=== PATIENT | female | born 1950 | race Caucasian/White ===

== ENCOUNTER → 2016-09-19 | Outpatient (CLI) | payer MEDICARE, OTHER ==
[~2016-09-19] MED LIST: LISI1TAB3 PO
--- NOTE | 2016-09-19 09:27 | RAD ---
EXAM: Chest 2 views. HISTORY: Foreign body sensation in throat. Asbestos exposure. COMPARISON: 10/13/2008. FINDINGS: Frontal and lateral views of the chest are obtained. A 15 mm nodule laterally along the right minor fissure appears new since the prior study. It is dense and may be calcified. There are no clear infiltrates. There is no pneumothorax or pleural effusion. The heart is not enlarged. IMPRESSION: 1. New 15 mm nodule along the right minor fissure. This appears to be calcified. CT could confirm this if intermediate radiographs do not already confirm long-term stability. CT is also more sensitive for interstitial lung disease in the setting of asbestos exposure.
== END | disposition home or self-care (01) ==
LOC: DXRADRC 08:57
PROVIDERS: ATTEND Physician Assistant Medical
DX: J84.9 Interstitial pulmonary disease, unspecified (principal); R07.0 Pain in throat; R09.89 Other specified symptoms and signs involving the circulatory and respiratory systems; Z77.090 Contact with and (suspected) exposure to asbestos
CPT/HCPCS: 71020

== ENCOUNTER → 2016-09-20 | Outpatient (CLI) | payer MEDICARE, OTHER ==
--- NOTE | 2016-09-20 09:10 | RAD ---
Indication abnormal chest x-ray. Noncontrast imaging through the chest was performed. No prior CT imaging of the chest is available. Note is made of a plain film examination of the chest one day earlier demonstrating a nodule in the right lung. Imaging through the upper abdomen shows no acute or significant finding. Clips are noted in the gallbladder fossa. There is a probable nodule in the left lobe of the thyroid. This is likely incidental but could be further evaluated with ultrasound if clinically warranted. There is no significant hilar or mediastinal adenopathy. There are a few calcified left hilar lymph nodes. The nodule on plain film is a densely calcified and is most compatible with a benign granuloma. There is some pleural thickening in the right mid and lower lung posteriorly and medially. This is likely chronic. There is no acute parenchymal infiltrate. A dominant soft tissue mass in either lung is not seen. There is some minimal nodularity along the fissure in the left lung, image 46 series 2. IMPRESSION: No acute finding in the chest. Calcified granuloma in the right lung. Pleural thickening in the right mid and posterior lung medially. This is likely chronic. Probable nodule left lobe of the thyroid Minimal nodularity along the left major fissure likely incidental. PQRS Compliance Statement: One or more of the following individualized dose reduction techniques were utilized for this examination: 1. Automated exposure control 2. Adjustment of the mA and/or kV according to patient size 3. Use of iterative reconstruction technique
== END | disposition home or self-care (01) ==
LOC: CT 08:19
PROVIDERS: ATTEND Physician Assistant Medical
DX: J84.10 Pulmonary fibrosis, unspecified (principal); R91.8 Other nonspecific abnormal finding of lung field; R93.8 Abnormal findings on diagnostic imaging of other specified body structures
CPT/HCPCS: 71250

== ENCOUNTER → 2017-02-14 | Outpatient (CLI) | payer MEDICARE, OTHER ==
--- NOTE | 2017-02-15 15:56 | RAD ---
DATE: 02/14/2017 EXAM: MAMMO KETTY SCREENING BILATERAL HISTORY: Routine screening COMPARISON: 04/01/2015 This study was interpreted with the benefit of Computerized Aided Detection (CAD). The breast parenchyma is heterogeneously dense, which could reduce sensitivity of mammography. Breast parenchyma level C. FINDINGS: 2-D and 3-D tomosynthesis imaging was performed in CC and MLO projections. The breasts are heterogeneously dense in a multinodular pattern. These nodules are smooth. No new or enlarging breast densities are seen. Benign type calcifications are present. No suspicious microcalcifications have developed. IMPRESSION: Stable mammograms without evidence of malignancy. BI-RADS CATEGORY: 2 BENIGN FINDING(S) RECOMMENDED FOLLOW-UP: 12M 12 MONTH FOLLOW-UP PQRS compliance statement: Patient information was entered into a reminder system with a target due date for the next mammogram. Mammography is a sensitive method for finding small breast cancers, but it does not detect them all and is not a substitute for careful clinical examination. A negative mammogram does not negate a clinically suspicious finding and should not result in delay in biopsying a clinically suspicious abnormality. "Our facility is accredited by the [employer] Mammography Program."
== END | disposition home or self-care (01) ==
LOC: MAMMO 10:52
PROVIDERS: ATTEND Nurse Practitioner Family
DX: Z12.31 Encounter for screening mammogram for malignant neoplasm of breast (principal)
CPT/HCPCS: 77063; G0202; 77067

== ENCOUNTER → 2017-04-06 | Outpatient (CLI) | payer MEDICARE, OTHER ==
--- NOTE | 2017-04-06 12:31 | RAD ---
CT of the cervical spine without contrast, 04/06/2017: History: C2 fracture Multidetector CT imaging was performed without contrast. Multiplanar reconstructions were produced. Comparison is made to an outside study from 03/29/2017. Again noted is a fracture of the lateral mass of C2. The fracture lines involves the anterior and posterolateral margins of the right foramen transversarium. There is no significant displacement at the fracture site. No involvement of the pedicle or significant involvement of the right facet joint is seen. The odontoid process is intact. There are moderate degenerative changes involving multiple facet joints bilaterally. Mild unchanged anterolisthesis at C2-3 and C4-5 is probably due to facet joint arthropathy. No additional fracture is evident. There is disc space narrowing with moderate marginal spurring at C5-6 and C6-7. No high-grade central spinal stenosis is evident. IMPRESSION: 1. Stable nondisplaced fracture of the lateral mass of C2 involving the foramen transversarium. 2. Moderate multilevel degenerative change. 3. Mild unchanged anterolisthesis at C2-3 and C4-5 due to facet joint arthropathy. PQRS Compliance Statement: One or more of the following individualized dose reduction techniques were utilized for this examination: 1. Automated exposure control 2. Adjustment of the mA and/or kV according to patient size 3. Use of iterative reconstruction technique
== END | disposition home or self-care (01) ==
LOC: CT 11:05
PROVIDERS: ATTEND Neurological Surgery
DX: S12.191A Other nondisplaced fracture of second cervical vertebra, initial encounter for closed fracture (principal); M47.892 Other spondylosis, cervical region; X58.XXXA Exposure to other specified factors, initial encounter; Y93.89 Activity, other specified; Y92.89 Other specified places as the place of occurrence of the external cause; Y99.8 Other external cause status
CPT/HCPCS: 72125

== ENCOUNTER → 2017-05-08 | Outpatient (CLI) | payer MEDICARE, OTHER ==
--- NOTE | 2017-05-08 13:23 | RAD ---
Three-view cervical spine series Clinical indications: C2 fracture. Follow-up study. Comparison: CT study dated April 06, 2017. Findings: Three-view study of the cervical spine was performed. The resolution is decreased due to overlying cervical collar device. C2 right lateral mass is displaced laterally with respect to the right C1 lateral masses as a result of a fracture through the right C2 lateral mass. The fracture line is difficult to visualize due to the overlying device. Therefore evaluation for healing cannot be completed. Alignment is unchanged from the CT study however. The alignment of the odontoid process with respect to the C1 anterior arch is normal and unchanged from the CT study. Again seen is a grade 1 anterolisthesis of C2-3 and C3-4 and C4-5 which is unchanged. Degenerative endplate spurring and moderate degenerative disc space narrowing is evident at C5-6 and C6-7 and to a lesser extent at C7-T1. IMPRESSION: Fracture of the right lateral mass of C2. Evaluation for healing is difficult with the overlying cervical spine device. Alignment is stable.
== END | disposition home or self-care (01) ==
LOC: DXRAD 10:55
PROVIDERS: ATTEND Neurological Surgery
DX: S12.120D Other displaced dens fracture, subsequent encounter for fracture with routine healing (principal); M48.02 Spinal stenosis, cervical region; M46.02 Spinal enthesopathy, cervical region; X58.XXXD Exposure to other specified factors, subsequent encounter
CPT/HCPCS: 72040

== ENCOUNTER → 2017-05-24 | Outpatient (CLI) | payer MEDICARE, OTHER ==
--- NOTE | 2017-05-24 09:58 | RAD ---
Cervical spine CT without contrast History: C2 fracture Technique: Noncontrast CT imaging was performed of the cervical spine. Multiplanar images are reviewed. Exposure: One or more of the following individualized dose reduction techniques were utilized for this examination: 1. Automated exposure control 2. Adjustment of the mA and/or kV according to patient size 3. Use of iterative reconstruction technique. Comparison: 04/06/2017 Findings: There is residual identifiable vertically oriented fracture plane involving the anterior right lateral mass of C2 extending to the right transverse foramen, fracture plane slightly less apparent more anteriorly, unchanged alignment. Degree of mild inferior displacement of the more lateral fracture fragment is stable. Alignment of the right lateral masses of C1 and C2 is unchanged. No new fracture is identified. There is again grade 1 anterior spondylolisthesis C2-3, C3-4, C4-5. There is again more advanced degenerative disc disease C5-C6 and C6-7 and to lesser degree at C7-T1. Round focus of bone lysis of the right aspect of T1 is stable, possibly underlying hemangioma. There are disc osteophyte complexes greatest at C5-C6 and C6-7 as seen previously. There is no significant cervical spinal stenosis identified on this nonmyelographic exam. Cervical neural foramina are not significantly narrowed. There is multilevel cervical facet degenerative change. Occipital condylar-C1 articulation is preserved. There is again heterogeneity of the thyroid gland with likely underlying nodules, also some small foci of calcification on the left. IMPRESSION: 1. There is again vertically oriented fracture involving the right lateral mass of C2 extending to the right transverse foramen, unchanged alignment. Fracture plane is slightly less apparent more anteriorly. 2. There is again degenerative disc disease and spondylosis greatest at C5-C6 and C6-7. There is similar multilevel mild abnormal alignment, multilevel facet degenerative change. 3. There is again heterogeneity of thyroid gland with likely underlying nodules, also some small calcifications on the left. Findings would be better characterized by ultrasound. Electronically signed by: José Miguel Esteves MD (05/24/2017 9:55 AM) [id number]
== END | disposition home or self-care (01) ==
LOC: CT 09:25
PROVIDERS: ATTEND Neurological Surgery
DX: S12.100D Unspecified displaced fracture of second cervical vertebra, subsequent encounter for fracture with routine healing (principal); M50.33 Other cervical disc degeneration, cervicothoracic region; M47.892 Other spondylosis, cervical region; M25.78 Osteophyte, vertebrae; X58.XXXD Exposure to other specified factors, subsequent encounter
CPT/HCPCS: 72125

== ENCOUNTER → 2017-06-20 | Outpatient (CLI) | payer MEDICARE, OTHER ==
--- NOTE | 2017-06-20 13:36 | RAD ---
Cervical spine CT without contrast History: C2 fracture Technique: Noncontrast CT imaging was performed of the cervical spine. Multiplanar images are reviewed. Exposure: One or more of the following individualized dose reduction techniques were utilized for this examination: 1. Automated exposure control 2. Adjustment of the mA and/or kV according to patient size 3. Use of iterative reconstruction technique. Comparison: May 24, 2017 Findings: There is again vertically oriented fracture involving the anterior right lateral mass of C2 extending to the right transverse foramen, not significantly changed in alignment. There is again residual fracture plane slightly less apparent more anteriorly. There is unchanged alignment of lateral masses of C1-2. No new fracture is identified. There is again degenerative disc disease greatest at C5-C6 and C6-7, also spondylosis greatest at these levels. Vertebral body stature is unchanged. There is similar multilevel grade 1 anterior spondylolisthesis C2-3, C3-4, C4-5. There is again round focus of bone lysis on the right at T1 overall stable in appearance. There is multilevel cervical facet degenerative change. Atlantoaxial distance is within normal limits. There is again heterogeneous thyroid gland with underlying nodularity, small foci of calcification on the left as seen previously. Impression: 1. There is similar alignment of vertically oriented fracture of the right lateral mass of C2 extending to the right transverse foramen, anterior aspect of fracture plane slightly less apparent although still identified. 2. There is again degenerative disc disease and spondylosis greatest at C5-C6 and C7. 3. There is multilevel cervical facet degenerative change, multilevel mild abnormal alignment as seen previously. 4. There is again heterogeneity and nodularity of the thyroid gland. Electronically signed by: José Miguel Esteves MD (06/20/2017 1:33 PM) [place] [id number]
== END | disposition home or self-care (01) ==
LOC: CT 11:06
PROVIDERS: ATTEND Neurological Surgery
DX: S12.190D Other displaced fracture of second cervical vertebra, subsequent encounter for fracture with routine healing (principal); M50.323 Other cervical disc degeneration at C6-C7 level; M47.892 Other spondylosis, cervical region; M43.12 Spondylolisthesis, cervical region; X58.XXXD Exposure to other specified factors, subsequent encounter
CPT/HCPCS: 72125

== ENCOUNTER → 2017-07-28 | Outpatient (CLI) | payer MEDICARE, OTHER ==
--- NOTE | 2017-07-28 16:06 | RAD ---
Thyroid ultrasound History: Thyroid nodules. Comparison: None. Findings: Right thyroid lobe measures 5.5 cm in length by 2.0 cm in AP dimension by 1.9 cm in transverse dimension. Right lobe demonstrates numerous nodules. Superior right thyroid lobe demonstrates heterogeneous nodule with hypoechoic and intermediate echoic elements. This measures 2.4 x 1.8 x 1.4 cm and is wider than tall. This nodule is considered a TI-RADS 4. Mid thyroid lobe demonstrates 2 complex cystic and solid nodules which measure 1.1 x 1.0 x 0.8 cm and 1.3 x 1.2 x 0.8 cm. There is a cyst involving the inferior right thyroid lobe measuring 0.7 x 0.6 x 0.7 cm. Left thyroid lobe measures 5.0 cm in length by 1.8 cm AP dimension by 2.0 cm in transverse dimension. Left thyroid lobe demonstrates presence of multiple thyroid nodules. Superior left thyroid lobe demonstrates heterogeneous, primarily hypoechoic nodule which measures 1.2 x 1.1 x 0.7 cm. Mid left thyroid lobe demonstrates heterogeneous hypoechoic and intermediate echoic nodule which measures 1.3 x 1.3 x 1.5 cm; this is considered TI-RADS 4. There is an additional hypoechoic nodule involving the mid left thyroid lobe which measures 1.2 x 1.0 x 0.9 cm; this nodule demonstrates macrocalcification and is considered TI-RADS 4. There are 2 additional hypoechoic nodules involving the medial mid thyroid lobe measuring 0.7 x 0.7 x 0.3 cm and 0.7 x 0.5 x 0.4 cm. Isthmus measures 6 mm in thickness. Impression: 1. Multinodular goiter. 2. There is a dominant nodule involving superior right thyroid lobe measuring 2.4 x 1.8 x 1.4 cm. This considered a TI-RADS 4 lesion. Given size, ultrasound-guided fine-needle aspiration is recommended. 3. The largest left thyroid nodule measures 1.5 cm in maximum dimension and is a TI-RADS 4 lesion. Given size, ultrasound-guided fine-needle aspiration is recommended. 4. There is a smaller TI-RADS 4 lesion involving the left thyroid lobe which demonstrates coarse calcification; given size, ultrasound follow-up is recommended of this nodule. 5. Smaller bilateral thyroid nodules are seen. Electronically signed by: Bill Sullivan MD (07/28/2017 4:02 PM) [facility]
== END | disposition home or self-care (01) ==
LOC: US 10:38
PROVIDERS: ATTEND Nurse Practitioner Family
DX: E04.2 Nontoxic multinodular goiter (principal)
CPT/HCPCS: 76536

== ENCOUNTER 2017-12-15 18:25 | Emergency (ER) | payer MEDICARE, OTHER ==
[~2017-12-15] VITALS: Ht 167.6 cm; Wt 80.3 kg
[2017-12-15] MEDS ORDERED: cloNIDine HCL 0.1 MG TABLET PO ONE (19:00)
[2017-12-15] MEDS ORDERED: ONDANSETRON PF 4 MG/2 ML VIAL. IV ONE (19:00)
[2017-12-15] MEDS ORDERED: MORPHINE SULFATE 4 MG/ML DISP.SYRIN. IV ONE (19:00)
--- NOTE | 2017-12-15 19:06 | ED.ADGEN ---
Past History Past Medical History: Anxiety, Diabetes, GERD, Hypertension Past Surgical History: Hysterectomy Alcohol Use: None Drug Use: None Adult General Chief Complaint Chief Complaint Headaches, hypertension HPI HPI Patient is 67-year-old with history of diabetes, hypertension and Monday presents with gradual onset posterior headache described as throbbing and rated moderate starting approximately 4-5 hours prior to ED arrival. Medicated the septal region and is nonradiating nonmigratory. It does not reproduce with position change, head movement. 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 Denies facial pain, tenderness tenderness , temporal scalp tenderness, nasal congestion, rhinorrhea, cough, fever, sore throat. Denies lower extremity weakness or numbness. Denies lightheadedness or dizziness. No other acute symptoms or complaints. Patient compliant with blood pressure medication took 20 mg of lisinopril earlier this morning. She has not taking any medications for the headache prior to coming to the emergency department. Blood pressure on ED arrival noted to be 160s over 120s. Patient's accompanied at bedside by significant other.] Review of Systems Review of Systems ROS as per HPI All other systems were reviewed and found to be within normal limits, except as documented in this note. Current Medications Current Medications Current Medications Medications (Trade) Dose Ordered Sig/Gordon Start Time Stop Time Status Last Admin Dose Admin Clonidine HCl (Catapres) 0.2 mg 1X ONCE 12/15/17 19:00 12/15/17 19:01 DC 12/15/17 19:04 0.2 MG Metoclopramide HCl (Reglan Vial) 10 mg 1X ONCE 12/15/17 19:45 12/15/17 19:46 DC 12/15/17 19:38 10 MG Morphine Sulfate (Morphine 4mg Syringe) 4 mg 1X ONCE 12/15/17 19:00 12/15/17 19:01 DC 12/15/17 19:05 4 MG Ondansetron HCl (Zofran) 4 mg 1X ONCE 12/15/17 19:00 12/15/17 19:01 DC 12/15/17 19:05 4 MG Prochlorperazine Edisylate (Compazine) 10 mg 1X ONCE 12/15/17 19:45 12/15/17 19:46 DC 12/15/17 19:38 10 MG Allergies Allergies Allergies Coded Allergies Type Severity Reaction Last Updated Verified No Known Drug Allergies 07/01/13 No Physical Exam Physical Exam Constitutional: Well developed, well nourished, no acute distress, non-toxic appearance. [] HENT: Normocephalic, atraumatic, bilateral external ears normal, oropharynx moist, nose normal. [] Eyes: PERRLA, EOMI, conjunctiva normal. [] Neck: Normal range of motion, no tenderness. [] Cardiovascular:Heart rate regular rhythm, no murmur [] Lungs & Thorax: Bilateral breath sounds clear to auscultation. [] Abdomen: Bowel sounds normal, soft, no tenderness. [] Skin: Warm, dry. [] Back: No tenderness. [] Extremities: No tenderness, no edema. [] Neurologic: Alert and oriented X 3, normal motor function, normal sensory function, no focal deficits noted. [] Psychologic: Affect normal, judgement normal, mood normal. [] Current Patient Data Vital Signs Vital Signs Date Time Temp Pulse Resp B/P (MAP) Pulse Ox O2 Delivery O2 Flow Rate FiO2 12/15/17 20:11 78 18 148/84 (105) 97 Room Air 12/15/17 18:43 97.9 Lab Results Laboratory Tests Test 12/15/17 18:54 White Blood Count 10.0 x10^3/uL (4.0-11.0) Red Blood Count 5.18 x10^6/uL (3.50-5.40) Hemoglobin 16.2 g/dL (12.0-15.5) H Hematocrit 46.9 % (36.0-47.0) Mean Corpuscular Volume 91 fL (79-100) Mean Corpuscular Hemoglobin 31 pg (25-35) Mean Corpuscular Hemoglobin Concent 35 g/dL (31-37) Red Cell Distribution Width 14.0 % (11.5-14.5) Platelet Count 234 x10^3/uL (140-400) Neutrophils (%) (Auto) 69 % (31-73) Lymphocytes (%) (Auto) 25 % (24-48) Monocytes (%) (Auto) 5 % (0-9) Eosinophils (%) (Auto) 2 % (0-3) Basophils (%) (Auto) 0 % (0-3) Neutrophils # (Auto) 6.9 x10^3uL (1.8-7.7) Lymphocytes # (Auto) 2.4 x10^3/uL (1.0-4.8) Monocytes # (Auto) 0.5 x10^3/uL (0.0-1.1) Eosinophils # (Auto) 0.1 x10^3/uL (0.0-0.7) Basophils # (Auto) 0.0 x10^3/uL (0.0-0.2) Sodium Level 139 mmol/L (136-145) Potassium Level 3.7 mmol/L (3.5-5.1) Chloride Level 102 mmol/L (98-107) Carbon Dioxide Level 28 mmol/L (21-32) Anion Gap 9 (6-14) Blood Urea Nitrogen 8 mg/dL (7-20) Creatinine 0.9 mg/dL (0.6-1.0) Estimated GFR (Cockcroft-Gault) 62.5 BUN/Creatinine Ratio 9 (6-20) Glucose Level 189 mg/dL (70-99) H Calcium Level 8.7 mg/dL (8.5-10.1) Total Bilirubin 0.3 mg/dL (0.2-1.0) Aspartate Amino Transferase (AST) 13 U/L (15-37) L Alanine Aminotransferase (ALT) 25 U/L (14-59) Alkaline Phosphatase 107 U/L (46-116) Total Protein 7.1 g/dL (6.4-8.2) Albumin 3.2 g/dL (3.4-5.0) L Albumin/Globulin Ratio 0.8 (1.0-1.7) L EKG EKG [] Radiology/Procedures Radiology/Procedures [CT head: NAD Course & Med Decision Making Course & Med Decision Making Pertinent Labs and Imaging studies reviewed. (See chart for details) Subtle headache not the worst the patient's life. Likely secondary to neck pain. Blood pressure elevated and suspected related to headache. Will check CT head to exclude subarachnoid hemorrhage, basic lab and address BP] Final Impression Final Impression [1. headache 2. accelerate htn] Dragon Disclaimer Dragon Disclaimer This electronic medical record was generated, in whole or in part, using a voice recognition dictation system. MIRANDA HSIEH DO Dec 15, 2017 19:06
[2017-12-15 19:08] LABS: BASO % 0 % (0-3); EOS # 0.1 x10^3/uL (0.0-0.7); EOS % 2 % (0-3); HEMATOCRIT 46.9 % (36.0-47.0); HEMOGLOBIN 16.2 g/dL (12.0-15.5); LYMPH # 2.4 x10^3/uL (1.0-4.8); LYMPH % 25 % (24-48); MEAN CORPUSCULAR HEMOGLOBIN 31 pg (25-35); MEAN CORPUSCULAR HGB CONC 35 g/dL (31-37); MEAN CORPUSCULAR VOLUME 91 fL (79-100); MONO # 0.5 x10^3/uL (0.0-1.1); MONO % 5 % (0-9); NEUT # 6.9 x10^3uL (1.8-7.7); NEUT % 69 % (31-73); PLATELET COUNT 234 x10^3/uL (140-400); RED BLOOD COUNT 5.18 x10^6/uL (3.50-5.40)
[2017-12-15 19:22] LABS: ALBUMIN 3.2 g/dL (3.4-5.0); ALBUMIN/GLOBULIN RATIO 0.8 (1.0-1.7); CALCIUM 8.7 mg/dL (8.5-10.1); CREATININE 0.9 mg/dL (0.6-1.0); GFR 62.5; POTASSIUM 3.7 mmol/L (3.5-5.1); TOTAL BILIRUBIN 0.3 mg/dL (0.2-1.0); TOTAL PROTEIN 7.1 g/dL (6.4-8.2)
--- NOTE | 2017-12-15 19:40 | RAD ---
EXAM: CT HEAD WITHOUT CONTRAST. HISTORY: Headache, hypertension. TECHNIQUE: Computed tomography of the head was performed without intravenous contrast. COMPARISON: None. FINDINGS: There is no intracranial hemorrhage. Velarde-white differentiation is preserved. There is mild senescent volume loss. The visualized paranasal sinuses appear clear. The orbits are unremarkable. The temporal bones are unremarkable. The calvarium reveals no suspicious lesions. IMPRESSION: 1. No acute intracranial findings. *One or more of the following individualized dose reduction techniques were utilized for this examination: 1. Automated exposure control. 2. Adjustment of the mA and/or kV according to patient size. 3. Use of iterative reconstruction technique. Electronically signed by: Dayanara Green MD (12/15/2017 7:37 PM) [facility]
[2017-12-15] MEDS ORDERED: PROCHLORPERAZINE 10 MG/2 ML VIAL. IV ONE (19:45)
[2017-12-15] MEDS ORDERED: METOCLOPRAMIDE HCL 10 MG/2 ML VIAL. IV ONE (19:45)
[2017-12-15 20:11] VITALS: BP 148/84
== END 2017-12-15 20:13 | disposition home or self-care (01) ==
LOC: ER 18:25
DX: I10 Essential (primary) hypertension (principal); F41.9 Anxiety disorder, unspecified; E11.9 Type 2 diabetes mellitus without complications; K21.9 Gastro-esophageal reflux disease without esophagitis; M19.90 Unspecified osteoarthritis, unspecified site
CPT/HCPCS: 36415; 70450; 80053; 85025; 96374; 96375; 99285; J0780; J2270; J2405; J2765

== ENCOUNTER → 2018-10-10 | Outpatient (CLI) | payer MEDICARE ==
--- NOTE | 2018-10-10 11:51 | RAD ---
EXAM: Abdomen, 2 views. HISTORY: Loose stools. COMPARISON: None. FINDINGS: Frontal upright and supine views of the abdomen are obtained. There are nonspecific air-filled loops of bowel within the abdomen. There is no abnormal bowel dilatation. There is no free air. There are cholecystectomy clips and clips within the pelvis. There is a calcified granuloma within the right lower lobe. IMPRESSION: Nonobstructive bowel gas pattern. Electronically signed by: Carlee Loza MD (10/10/2018 11:49 AM) [place] [id number]
== END | disposition home or self-care (01) ==
LOC: RAD 11:25
PROVIDERS: ATTEND Physician Assistant
DX: R19.5 Other fecal abnormalities (principal); K46.9 Unspecified abdominal hernia without obstruction or gangrene; J84.10 Pulmonary fibrosis, unspecified; Z90.49 Acquired absence of other specified parts of digestive tract
CPT/HCPCS: 74019

== ENCOUNTER → 2019-07-22 | Outpatient (CLI) | payer MEDICARE, OTHER ==
[~2019-07-22] MED LIST changes: +LISI1TAB23 PO; -LISI1TAB3 PO
--- NOTE | 2019-07-25 11:54 | RAD ---
EXAMINATION: Bilateral screening mammogram, 07/22/2019 1:30 PM CLINICAL INDICATION: 69-year-old woman woman presenting for screening mammogram. COMPARISON: Screening mammogram 02/14/2017 TECHNIQUE: Digital bilateral full-field CC and MLO views of the breasts were obtained. CAD was utilized. FINDINGS: The breasts contain scattered areas of fibroglandular density. There is no mass, suspicious calcification, or architectural distortion. There are bilateral benign-appearing calcifications. IMPRESSION: 1. No mammographic evidence of malignancy. 2. BI-RADS 2-benign. 3. Routine annual screening mammogram is recommended in 1 year. The patient will receive a reminder letter by mail when she is due for her next exam. Electronically signed by: Betzaida Bustos MD (07/25/2019 11:51 AM) [id number]
== END | disposition home or self-care (01) ==
LOC: MAMMO 12:30
PROVIDERS: ATTEND Physician Assistant
DX: Z12.31 Encounter for screening mammogram for malignant neoplasm of breast (principal)
CPT/HCPCS: 77067

== ENCOUNTER → 2019-11-01 | Outpatient (CLI) | payer MEDICARE, OTHER | LOC: LAB 10:00 | PROVIDERS: ATTEND Registered Nurse | DX: Z20.828 Contact with and (suspected) exposure to other viral communicable diseases (principal) | CPT/HCPCS: U0003-CS ==

== ENCOUNTER → 2019-11-05 | Day surgery (SDC) | payer MEDICARE ==
[~2019-11-05] MED LIST changes: +ATOR10TA60 PO; +BALANCED SALT IRRIG OPHTH SOLN 15 ML BOTTLE. IRR ONE; +CATARACT OPHTH GEL 0.5 ML SYRINGE. OS ONE; +CHONDROIT-SOD-HYALURONATE KIT. OS ONE; +EPINEPHrine AMPULE 0.5 MG in BALANCED SALT IRRIG SOLN PLUS 500 ML IO ONE; +ERYTHROMYCIN 0.5% OPHTH OINTMENT 1GM TUBE. OS ONE; +ESCITALOPRAM OX10 MG PO; +HYALURONIDASE 75UNITS in LIDOCAINE 2% PF OPHTH 10 ML SYRINGE. ONE; +HYALURONIDASE 75UNITS in LIDOCAINE 2% PF OPHTH 10 ML SYRINGE. OS ONE; +IPRATRPIUM/ALBUTEROL 0.5/2.5MG 3 ML NEBU. NEB PRN; +IV RINGERS SOLUTION,LACTATED 1,000 ML IV SCH; +KETOROLAC TROMETHAMINE 0.5% OPHTH SOLUTION BOTTLE. ONE; +KETOROLAC TROMETHAMINE 0.5% OPHTH SOLUTION BOTTLE. OS SCH; +LIDO/EPI IN BSS OPHTH 4 ML SYRINGE OS ONE; +LISI40TA PO; +METF-550 PO; +MIDAZOLAM HCL PF 2 MG/2 ML VIAL. IV ONE; +MOXIFLOXACIN 0.5% OPHTH SOLUTION 3ML BOTTLE. OS SCH; +POVIDONE-IODINE 5% OPHTH SOLUTION 30ML BOTTLE. OS ONE; +PROPOFOL 10,000 MCG/ML (20ML) VIAL IV ONE; +TETRACAINE 0.5% OPHTH SOLUTION 4ML BOTTLE. OS ONE; +TETRACAINE 0.5% OPHTH SOLUTION 4ML BOTTLE. OU ONE; +prednisoLONE ACETATE 1% OPHTH SUSPENSION 5ML BOTTLE. ONE; +prednisoLONE ACETATE 1% OPHTH SUSPENSION 5ML BOTTLE. OS SCH
[2019-11-05] MEDS: MOXIFLOXACIN 0.5% OPHTH SOLUTION 3ML BOTTLE. OS SCH ×3 (09:41→09:52)
--- NOTE | 2019-11-05 10:56 | PDOC4 ---
Phaco/IFIS w/o Ring/OS Date of Procedure: Nov 05, 2019 Preoperative Diagnosis: 1. Senile Cataract, Left Eye 2. Anticipated Intraoperative Floppy Iris Syndrome Posoperative Diagnosis: 1. Senile Cataract, Left Eye 2. Intraoperative Floppy Iris Syndrome Anesthesia: Local (Block) with monitored anesthesia care Surgeon: Kamilah Howard D.O. Procedure: Procdeure: Left Phacoemulsification with Intraocular Lens Implant Findings: Senile Cataract Intraoperative Floppy Iris Syndrome Indications: Worsening vision interfering with patient's lifestyle Narrative: After discussing the risks, complications and alternatives, including but not limited to loss of vision, infection, bleeding, swelling, anesthetic reaction, capsule rupture with vitreous loss, etc., the patient was given a peribulbar block under mild IV sedation and cardiac monitoring. Pressure was applied to the eye for approximately 10 minutes. The patient was transferred to the main operating room and was prepped and draped in the usual sterile fashion and positioned under the microscope. A lid speculum was placed. A temporal clear corneal incision was made with a keratome and epi-Shugarcaine was injected into the anterior chamber, this was followed by injecting viscoelastic. A side port incision was made. A continuous tear capsulorrhexis was performed, then hydrodissection was accomplished with balanced salt solution. The phacoemulsification needle was placed in the eye and the nucleus was emulsified. The remaining cortical material was removed with the irrigation and aspiration apparatus. The capsule was polished as needed. The posterior capsule was noted to be clean and intact. Viscoelastic was injected into the eye inflating the capsular bag. An intraocular lens was injected into the eye, unfolding as desired and was positioned in the capsular bag. The viscoelastic was aspirated from the eye. The wound edges were hydrated with balanced salt solution and there were no leaks. Viscoelastic was injected over the limbal incisions. Antibiotic and steroid were placed on the eye. The lid speculum was removed, the eye patched shut and a Dugan shield applied. There were no complications and the patient was taken to the PACU in good condition. KAMILAH HOWARD DO Nov 05, 2019 10:56
[2019-11-05 11:08] VITALS: BP 152/71
--- NOTE | 2019-11-05 11:28 | PDOC4 ---
Phaco IOL/Cataract/OD Date of Procedure: Nov 05, 2019 Preoperative Diagnosis: Preoperative Diagnosis: Senile Cataract, Right Eye Postoperative Diagnosis: Senile Cataract, Right Eye Anesthesia: Local with monitored anesthesia care Surgeon: Kamilah Howard D.O. Procedure: Right Phacoemulsification with Intraocular Lens Implant Findings: Senile Cataract Indications: Worsening vision interfering with patient's lifestyle Narrative: After discussing the risks, complications and alternatives, including but not limited to loss of vision, infection, bleeding, swelling, anesthetic reaction, capsule rupture with vitreous loss, etc., the patient was given a peribulbar block under mild IV sedation and cardiac monitoring. Pressure was applied to the eye for approximately 10 minutes. The patient was transferred to the main operating room and was prepped and draped in the usual sterile fashion and positioned under the microscope. A lid speculum was placed. A temporal clear corneal incision was made with a keratome and viscoelastic was injected into the eye. A side port incision was made. A continuous tear capsulorrhexis was performed, then hydrodissection was accomplished with balanced salt solution. The phacoemulsification needle was placed in the eye and the nucleus was emulsified. The remaining cortical material was removed with the irrigation and aspiration apparatus. The capsule was polished as needed. The posterior capsule was noted to be clean and intact. Viscoelastic was injected into the eye inflating the capsular bag. An intraocular lens was injected into the eye, unfolding as desired and was positioned in the capsular bag. The viscoelastic was aspirated from the eye. The wound edges were hydrated with balanced salt solution and there were no leaks. Viscoelastic was injected over the limbal incisions. Antibiotic and steroid were placed on the eye. The lid speculum was removed, the eye patched shut and a Dugan shield applied. There were no complications and the patient was taken to the PACU in good condition. KAMILAH HOWARD DO Nov 05, 2019 11:28
== END | disposition home or self-care (01) ==
LOC: SURG 09:02
PROVIDERS: ATTEND Ophthalmology
DX: H21.81 Floppy iris syndrome (principal); H25.812 Combined forms of age-related cataract, left eye; I10 Essential (primary) hypertension; F41.9 Anxiety disorder, unspecified; Z79.899 Other long term (current) drug therapy
CPT/HCPCS: 66982; 82947; J0171; J2704; V2632

== ENCOUNTER → 2019-11-15 | Outpatient (CLI) | payer MEDICARE ==
[2019-11-05 11:08] VITALS: BP 152/71
[~2019-11-15] MED LIST changes: -BALANCED SALT IRRIG OPHTH SOLN 15 ML BOTTLE. IRR ONE; -CATARACT OPHTH GEL 0.5 ML SYRINGE. OS ONE; -CHONDROIT-SOD-HYALURONATE KIT. OS ONE; -EPINEPHrine AMPULE 0.5 MG in BALANCED SALT IRRIG SOLN PLUS 500 ML IO ONE; -ERYTHROMYCIN 0.5% OPHTH OINTMENT 1GM TUBE. OS ONE; -HYALURONIDASE 75UNITS in LIDOCAINE 2% PF OPHTH 10 ML SYRINGE. ONE; -HYALURONIDASE 75UNITS in LIDOCAINE 2% PF OPHTH 10 ML SYRINGE. OS ONE; -IPRATRPIUM/ALBUTEROL 0.5/2.5MG 3 ML NEBU. NEB PRN; -IV RINGERS SOLUTION,LACTATED 1,000 ML IV SCH; -KETOROLAC TROMETHAMINE 0.5% OPHTH SOLUTION BOTTLE. ONE; -KETOROLAC TROMETHAMINE 0.5% OPHTH SOLUTION BOTTLE. OS SCH; -LIDO/EPI IN BSS OPHTH 4 ML SYRINGE OS ONE; -MIDAZOLAM HCL PF 2 MG/2 ML VIAL. IV ONE; -MOXIFLOXACIN 0.5% OPHTH SOLUTION 3ML BOTTLE. OS SCH; -POVIDONE-IODINE 5% OPHTH SOLUTION 30ML BOTTLE. OS ONE; -PROPOFOL 10,000 MCG/ML (20ML) VIAL IV ONE; -TETRACAINE 0.5% OPHTH SOLUTION 4ML BOTTLE. OS ONE; -TETRACAINE 0.5% OPHTH SOLUTION 4ML BOTTLE. OU ONE; -prednisoLONE ACETATE 1% OPHTH SUSPENSION 5ML BOTTLE. ONE; -prednisoLONE ACETATE 1% OPHTH SUSPENSION 5ML BOTTLE. OS SCH
== END | disposition home or self-care (01) ==
LOC: LAB 10:17
PROVIDERS: ATTEND Registered Nurse
DX: Z20.828 Contact with and (suspected) exposure to other viral communicable diseases (principal)
CPT/HCPCS: U0003-CS

== ENCOUNTER → 2019-11-19 | Day surgery (SDC) | payer MEDICARE ==
[~2019-11-19] MED LIST changes: +BALANCED SALT IRRIG OPHTH SOLN 15 ML BOTTLE. IRR ONE; +CATARACT OPHTH GEL 0.5 ML SYRINGE. OD ONE; +CATARACT OPHTH GEL 0.5 ML SYRINGE. OS ONE; +CHONDROIT-SOD-HYALURONATE KIT. OD ONE; +CHONDROIT-SOD-HYALURONATE KIT. OS ONE; +EPINEPHrine AMPULE 0.5 MG in BALANCED SALT IRRIG SOLN PLUS 500 ML IO ONE; +ERYTHROMYCIN 0.5% OPHTH OINTMENT 1GM TUBE. OD ONE; +ERYTHROMYCIN 0.5% OPHTH OINTMENT 1GM TUBE. OS ONE; +HYALURONIDASE 75UNITS in LIDOCAINE 2% PF OPHTH 10 ML SYRINGE. OD ONE; +HYALURONIDASE 75UNITS in LIDOCAINE 2% PF OPHTH 10 ML SYRINGE. OS ONE; +IPRATRPIUM/ALBUTEROL 0.5/2.5MG 3 ML NEBU. NEB PRN; +IV RINGERS SOLUTION,LACTATED 1,000 ML IV SCH; +KETOROLAC TROMETHAMINE 0.5% OPHTH SOLUTION BOTTLE. OD SCH; +KETOROLAC TROMETHAMINE 0.5% OPHTH SOLUTION BOTTLE. ONE; +KETOROLAC TROMETHAMINE 0.5% OPHTH SOLUTION BOTTLE. OS SCH; +LIDO/EPI IN BSS OPHTH 4 ML SYRINGE OD ONE; +MIDAZOLAM HCL PF 2 MG/2 ML VIAL. IV ONE; +MOXIFLOXACIN 0.5% OPHTH SOLUTION 3ML BOTTLE. OD SCH; +MOXIFLOXACIN 0.5% OPHTH SOLUTION 3ML BOTTLE. OS SCH; +POVIDONE-IODINE 5% OPHTH SOLUTION 30ML BOTTLE. OD ONE; +POVIDONE-IODINE 5% OPHTH SOLUTION 30ML BOTTLE. OS ONE; +PROPOFOL 10,000 MCG/ML (20ML) VIAL IV ONE; +TETRACAINE 0.5% OPHTH SOLUTION 4ML BOTTLE. OD ONE; +TETRACAINE 0.5% OPHTH SOLUTION 4ML BOTTLE. OS ONE; +TETRACAINE 0.5% OPHTH SOLUTION 4ML BOTTLE. OU ONE; +prednisoLONE ACETATE 1% OPHTH SUSPENSION 5ML BOTTLE. OD SCH; +prednisoLONE ACETATE 1% OPHTH SUSPENSION 5ML BOTTLE. ONE; +prednisoLONE ACETATE 1% OPHTH SUSPENSION 5ML BOTTLE. OS SCH
[2019-11-19] MEDS: MOXIFLOXACIN 0.5% OPHTH SOLUTION 3ML BOTTLE. OD SCH ×3 (08:43→08:53)
--- NOTE | 2019-11-19 09:46 | PDOC4 ---
Phaco IOL/IFIS w/o Ring/OD Date of Procedure: Nov 19, 2019 Preoperative Diagnosis: 1. Senile Cataract, Right Eye 2. Anticipated Intraoperative Floppy Iris Syndrome Postoperative Diagnosis: 1. Senile Cataract, Right Eye 2. Intraoperative Floppy Iris Syndrome Anesthesia: Local (Block) with monitored anesthesia care Surgeon: Kamilah Howard D.O. Procedure: Procdeure: Right Phacoemulsification with intraocular lens implant Findings: Senile Cataract Intraoperative Floppy Iris Syndrome Indications: Worsening vision interfering with patient's lifestyle Narrative: After discussing the risks, complications and alternatives, including but not limited to loss of vision, infection, bleeding, swelling, anesthetic reaction, capsule rupture with vitreous loss, etc., the patient was given a peribulbar block under mild IV sedation and cardiac monitoring. Pressure was applied to the eye for approximately 10 minutes. The patient was transferred to the main operating room and was prepped and draped in the usual sterile fashion and positioned under the microscope. A lid speculum was placed. A temporal clear corneal incision was made with a keratome and epi-Shugarcaine was injected into the anterior chamber, this was followed by injecting viscoelastic. A side port incision was made. A continuous tear capsulorrhexis was performed, then hydrodissection was accomplished with balanced salt solution. The phacoemulsifi cation needle was placed in the eye and the nucleus was emulsified. The remaining cortical material was removed with the irrigation and aspiration apparatus. The capsule was polished as needed. The posterior capsule was noted to be clean and intact. Viscoelastic was injected into the eye inflating the capsular bag. An intraocular lens was injected into the eye, unfolding as de sired and was positioned in the capsular bag. The viscoelastic was aspirated from the eye. The wound edges were hydrated with balanced salt solution and there were no leaks. Viscoelastic was injected over the limbal incisions. Antibiotic and steroid were placed on the eye. The lid speculum was removed, the eye patched shut and a Dugan shield applied. There were no compilations and the patient was taken to the PACU in good condition. KAMILAH HOWARD DO Nov 19, 2019 09:46
[2019-11-19 10:05] VITALS: BP 152/92
== END | disposition home or self-care (01) ==
LOC: SURG 08:14
PROVIDERS: ATTEND Ophthalmology
DX: H21.81 Floppy iris syndrome (principal); H25.811 Combined forms of age-related cataract, right eye; I10 Essential (primary) hypertension; F41.9 Anxiety disorder, unspecified; E11.36 Type 2 diabetes mellitus with diabetic cataract; K21.9 Gastro-esophageal reflux disease without esophagitis; Z87.891 Personal history of nicotine dependence; Z79.84 Long term (current) use of oral hypoglycemic drugs; Z79.899 Other long term (current) drug therapy
CPT/HCPCS: 66982; J0171; J2704; V2632

== ENCOUNTER → 2020-12-08 | Outpatient (CLI) | payer MEDICARE ==
[2019-11-19 10:05] VITALS: BP 152/92
[~2020-12-08] MED LIST changes: -BALANCED SALT IRRIG OPHTH SOLN 15 ML BOTTLE. IRR ONE; -CATARACT OPHTH GEL 0.5 ML SYRINGE. OD ONE; -CATARACT OPHTH GEL 0.5 ML SYRINGE. OS ONE; -CHONDROIT-SOD-HYALURONATE KIT. OD ONE; -CHONDROIT-SOD-HYALURONATE KIT. OS ONE; -EPINEPHrine AMPULE 0.5 MG in BALANCED SALT IRRIG SOLN PLUS 500 ML IO ONE; -ERYTHROMYCIN 0.5% OPHTH OINTMENT 1GM TUBE. OD ONE; -ERYTHROMYCIN 0.5% OPHTH OINTMENT 1GM TUBE. OS ONE; -HYALURONIDASE 75UNITS in LIDOCAINE 2% PF OPHTH 10 ML SYRINGE. OD ONE; -HYALURONIDASE 75UNITS in LIDOCAINE 2% PF OPHTH 10 ML SYRINGE. OS ONE; -IPRATRPIUM/ALBUTEROL 0.5/2.5MG 3 ML NEBU. NEB PRN; -IV RINGERS SOLUTION,LACTATED 1,000 ML IV SCH; -KETOROLAC TROMETHAMINE 0.5% OPHTH SOLUTION BOTTLE. OD SCH; -KETOROLAC TROMETHAMINE 0.5% OPHTH SOLUTION BOTTLE. ONE; -KETOROLAC TROMETHAMINE 0.5% OPHTH SOLUTION BOTTLE. OS SCH; -LIDO/EPI IN BSS OPHTH 4 ML SYRINGE OD ONE; -LISI40TA PO; +LISI40TA6 PO; -METF-550 PO; +METF-638 PO; -MIDAZOLAM HCL PF 2 MG/2 ML VIAL. IV ONE; -MOXIFLOXACIN 0.5% OPHTH SOLUTION 3ML BOTTLE. OD SCH; -MOXIFLOXACIN 0.5% OPHTH SOLUTION 3ML BOTTLE. OS SCH; -POVIDONE-IODINE 5% OPHTH SOLUTION 30ML BOTTLE. OD ONE; -POVIDONE-IODINE 5% OPHTH SOLUTION 30ML BOTTLE. OS ONE; -PROPOFOL 10,000 MCG/ML (20ML) VIAL IV ONE; -TETRACAINE 0.5% OPHTH SOLUTION 4ML BOTTLE. OD ONE; -TETRACAINE 0.5% OPHTH SOLUTION 4ML BOTTLE. OS ONE; -TETRACAINE 0.5% OPHTH SOLUTION 4ML BOTTLE. OU ONE; -prednisoLONE ACETATE 1% OPHTH SUSPENSION 5ML BOTTLE. OD SCH; -prednisoLONE ACETATE 1% OPHTH SUSPENSION 5ML BOTTLE. ONE; -prednisoLONE ACETATE 1% OPHTH SUSPENSION 5ML BOTTLE. OS SCH
--- NOTE | 2020-12-08 13:47 | RAD ---
EXAM: Bilateral screening mammogram. HISTORY: 70-year-old female presents for screening mammography. TECHNIQUE: Full-field digital craniocaudal and mediolateral oblique views of both breasts are obtaine d for evaluation. Computer aided detection was applied. COMPARISON: 07/22/2019 and 02/22/2017 BREAST PARENCHYMAL DENSITY: Level B - Scattered fibroglandular densities. FINDINGS: There is a small nodular density with associated clustered microcalcifications within the p osterior 9:00 position of the right breast. There are additional areas of nodularity and there are ad ditional scattered calcifications which are stable in appearance. There is no architectural distortio n. IMPRESSION: BI-RADS Category 0: Incomplete. Additional imaging needed. RECOMMENDATION: Further evaluation with spot magnification views of nodularity with associated bilate ral calcifications within the posterior 9:00 position of the right breast is recommended. Sonographic imaging can also be performed if deemed indicated based on additional mammographic findings. If your mammogram demonstrates that you have dense breast tissue, which could hide abnormalities, and if you have other risk factors for breast cancer that have been identified, you might benefit from s upplemental screening tests that may be suggested by your ordering physician. Dense breast tissue, i n and of itself, is a relatively common condition. This information is not provided to cause undue c oncern, but rather to raise your awareness and to promote discussion with your physician regarding th e presence of other risk factors, in addition to dense breast tissue. A report of your mammography re sults will be sent to you and your physician. You should contact your physician if you have any ques tions or concerns regarding this report. Mammography is a sensitive method for finding small breast cancers, but it does not detect them all a nd is not a substitute for careful clinical examination. A negative mammogram does not negate a clin ically suspicious finding and should not result in delay in biopsying a clinically suspicious abnorma lity. PQRS compliance statement - Patient information was entered into a reminder system with a target due date for the next mammogram. "Our facility is accredited by the [employer] Mammography [employer]." Electronically signed by: Carlee Loza MD (12/08/2020 1:44 PM) [id number]
== END ==
LOC: MAMMO 11:06
PROVIDERS: ATTEND Physician Assistant
DX: Z12.31 Encounter for screening mammogram for malignant neoplasm of breast (principal); R92.1 Mammographic calcification found on diagnostic imaging of breast
CPT/HCPCS: 77067

== ENCOUNTER → 2021-01-08 | Outpatient (CLI) | payer MEDICARE ==
[2019-11-19 10:05] VITALS: BP 152/92
[~2021-01-08] MED LIST changes: -LISI1TAB23 PO; +LISI1TAB35 PO
--- NOTE | 2021-01-08 15:06 | RAD ---
EXAMINATION: MG DIAGNOSTICUNILAT MAMMO History: Recalled from screening mammogram for small mass containing consultations at 9:00 in the rig ht breast. Comparison: 12/08/2020. Technique: Spot magnification views of the right breast were obtained. Subsequent focused right breas t ultrasound was performed. Findings: Breast Tissue Density B : There are scattered areas of fibroglandular density. The mass at 9:00 posterior depth measures about 5 mm and has lobulated margins. It contains multiple small amorphous calcifications. Ultrasound of the outer right breast from 9:00 to 11:00 was performed. There is a small lymph node me asuring 10 x 6 x 6 mm at 10:00 13 cm from the nipple. This possibly corresponds with the mass but yeh s not clearly contain calcifications. No suspicious nodes in the right axilla. IMPRESSION: 5 mm mass at 9:00 13 cm from the nipple with suspicious calcifications on diagnostic mammogram. Biops y is recommended. As the lymph node seen on ultrasound in this region does not definitively correspon d with the abnormality, stereotactic approach is recommended. If at the time of the procedure ultraso und-guided biopsy is deemed appropriate, this approach could be performed instead. BI-RADS Category 4: Suspicious. Results and recommendations were discussed with Dr. Elizondo's office at 3:00 PM on 01/08/2021. Electronically signed by: Betzaida Bustos MD (01/08/2021 3:04 PM) [id number]
--- NOTE | 2021-01-08 19:00 | RAD ---
EXAMINATION: Diagnostic right breast mammogram and right breast ultrasound History: Recalled from screening mammogram for small mass containing consultations at 9:00 in the rig ht breast. Comparison: 12/08/2020. Technique: Spot magnification views of the right breast were obtained. Subsequent focused right breas t ultrasound was performed. Findings: Breast Tissue Density B : There are scattered areas of fibroglandular density. The mass at 9:00 posterior depth measures about 5 mm and has lobulated margins. It contains multiple small amorphous calcifications. Ultrasound of the outer right breast from 9:00 to 11:00 was performed. There is a small lymph node me asuring 10 x 6 x 6 mm at 10:00 13 cm from the nipple. This possibly corresponds with the mass but yeh s not clearly contain calcifications. No suspicious nodes in the right axilla. IMPRESSION: 5 mm mass at 9:00 13 cm from the nipple with suspicious calcifications on diagnostic mammogram. Biops y is recommended. As the lymph node seen on ultrasound in this region does not definitively correspon d with the abnormality, stereotactic approach is recommended. If at the time of the procedure ultraso und-guided biopsy is deemed appropriate, this approach could be performed instead. BI-RADS Category 4: Suspicious. Results and recommendations were discussed with Dr. Elizondo's office at 3:00 PM on 01/08/2021. Electronically signed by: Betzaida Bustos MD (01/08/2021 6:57 PM) [id number]
== END ==
LOC: MAMMO 13:43
PROVIDERS: ATTEND Physician Assistant
DX: N63.11 Unspecified lump in the right breast, upper outer quadrant (principal)
CPT/HCPCS: 76642; 77065